=== PATIENT | female | born 1985 | race Caucasian/White ===

== ENCOUNTER 2016-05-21 19:57 | Emergency (ER) | payer OTHER ==
[2016-05-21 20:13] VITALS: TEMP 97.1
[2016-05-21] MEDS ORDERED: MORPHINE SULFATE INJ 10 MG/ML VIAL IV ONE ×2 (20:45→21:27)
[2016-05-21] MEDS ORDERED: ONDANSETRON INJ 4 MG/2 ML VIAL IV ONE (20:45)
--- NOTE | 2016-05-21 20:45 | CT ---
EXAM DESCRIPTION: Sinuses CLINICAL HISTORY: 30 years Female tooth/facial pain COMPARISON: None. TECHNIQUE: Contiguous axial images obtained through the maxillofacial region without IV contrast. Reformatted images obtained. FINDINGS: The body of the mandible and the mandibular teeth are incompletely imaged. The post septal orbits appear unremarkable. Minimal mucosal thickening in the left maxillary sinus. Minimal mucosal thickening within some ethmoid air cells. No fluid is visualized in the paranasal sinuses. Mild deviation of the nasal septum towards the right. No facial bone fractures are identified. Questionable lucency at the roots of the bilateral maxillary molar teeth. Dental films of these regions are recommended. No definite dental caries. IMPRESSION: The body of the mandible and mandibular teeth are incompletely imaged on this study. Questionable lucency at the roots of the bilateral maxillary molar teeth. Dental films of these regions are recommended. Minimal mucosal thickening in the left maxillary sinus and in some ethmoid air cells. Electronically signed by: Bryan Flood MD 05/21/2016 8:44 PM [employer]
[2016-05-21] MEDS ORDERED: SODIUM CHLORIDE 0.9% 10 ML VIAL ONE (20:48)
--- NOTE | 2016-05-21 21:06 | ED.PDOC ---
History of Present Illness - General Chief Complaint: Dental/Mouth Stated Complaint: tooth Time Seen by Provider: 05/21/16 20:44 Source: patient, RN notes reviewed, Vital Signs reviewed Exam Limitations: no limitations - History of Present Illness Initial Comments: Patient is a 30 y/o female who had a root canal on tooth #12 yesterday. Prior to going to the dentist, Patient didn't feel well, was achy. She vomited once after she ate breakfast. However she felt better afterward, so she went ahead with the procedure. After the anesthesia wore off, she has experienced severe pain, worsening today. The pain is severe, a pressure, and it feels like a screw is being twisted into her sinus cavity. The pain is throughout her left maxillary sinus and radiates to the back of her head. She has felt feverish and has had chills. She has zara taking Tylenol with codeine, her last being a 1800, however they have not touched the pain. Timing/Duration: 24 hours Severity: severe Improving Factors: nothing Worsening Factors: eating, other - touch to tooth Associated Symptoms: fever/chills, nausea/vomiting Allergies/Adverse Reactions: Allergies Penicillins Allergy (Unknown, Verified 11/03/14 04:37) Unknown Home Medications: Ambulatory Orders Amoxicillin & Pot Clavulanate [Augmentin] 875 mg PO BID #14 tab 05/21/16 Gabapentin 300 mg PO TID PRN #15 cap 05/21/16 Review of Systems - Review of Systems Constitutional: States: chills, fever EENTM: States: nose congestion, mouth pain, other - left sinus pain Respiratory: States: no symptoms reported Cardiology: States: no symptoms reported Gastrointestinal/Abdominal: States: diarrhea, nausea, vomiting Genitourinary: States: no symptoms reported Musculoskeletal: States: no symptoms reported Skin: States: no symptoms reported Neurological: States: no symptoms reported Endocrine: States: no symptoms reported Hematologic/Lymphatic: States: no symptoms reported All other Systems: Reviewed and Negative Past Medical History (General) - Patient Medical History Hx Seizures: No Hx Stroke: No Hx Dementia: No Hx Asthma: No Hx of COPD: No Hx Cardiac Disorders: Yes - mitral valve prolapse, diagnosed 2013 Hx Congestive Heart Failure: No Hx Pacemaker: No Hx Hypertension: No Hx Thyroid Disease: No Hx Diabetes: Yes - gesational DM Hx Gastroesophageal Reflux: No Hx Renal Disease: No Hx Cancer: No Hx of HIV: No Hx Hepatitis C: No Hx MRSA: No Surgical History: no surgical history - Vaccination History Hx Tetanus, Diphtheria Vaccination: Yes Hx Influenza Vaccination: No Hx Pneumococcal Vaccination: No Immunizations Up to Date: Yes - Social History Hx Tobacco Use: Yes - 1/2 ppd Hx Chewing Tobacco Use: No Hx Alcohol Use: No Hx Substance Use: No Hx Substance Use Treatment: No Hx Depression: No Hx Physical Abuse: No Hx Emotional Abuse: No Hx Suspected Abuse: No - Activities of Daily Living Hospice Agency (if applicable):: None - Female History Patient is a Female of Child Bearing Age (10 -59 yrs old): Yes Patient : Yes Expected Date of Delivery:: 06/28/15 Hx Gestational Age: 17 Family Medical History - Family History Father Family History: Unknown Hx Family;Other: does not know dad Mother Family History: No Known Name: micheal bejarano Age (years): 57 Living Status: Still Living Physical Exam - Physical Exam General Appearance: Alert, Obvious distress Eye Exam: bilateral normal Ears, Nose, Throat: hearing grossly normal, other - evidence of left upper tooth procedure. Mild erythema to surrounding gums. Tenderness to palpation of the left sinus, jaw, and maxillary sinus. Neck: non-tender, full range of motion, supple, normal inspection, other - No LAD Respiratory: lungs clear, normal breath sounds, no respiratory distress, no accessory muscle use Cardiovascular/Chest: regular rate, rhythm, no edema, no gallop, no murmur Gastrointestinal/Abdominal: normal bowel sounds, non tender, soft, no organomegaly Back Exam: normal inspection, no CVA tenderness Extremity: normal range of motion Neurologic: alert, normal mood/affect, oriented x 3 Skin Exam: normal color, warm/dry Progress - Progress Progress: 05/21/16 22:23 Patient was given a total of Morphine 4 mg, Zofran, Toradol and gabapentin. Prior to discharge, her pain was a 2/10. She will call her dentist if symptoms persist. - Results/Orders Results/Orders: 05/21/16 05/21/16 20:08 21:38 Temperature 97.1 F L Pulse Rate [ 78 72 left] Respiratory 18 18 Rate Blood Pressure 113/74 120/81 [left] O2 Sat by Pulse 96 93 L Oximetry Departure - Departure Clinical Impression: Pain, dental ICD-10 Supporting Text: s/p root canal Time of Disposition: 22:29 Disposition: Discharge to Home or Self Care Condition: Excellent Departure Forms: ED Discharge - Pt. Copy, Patient Portal Self Enrollment Instructions: DI for Dental Pain, Root Canal Treatment, DI for Root Canal Treatment Diet: resume usual diet, other - Do not chew on left side of mouth. Prescriptions: Amoxicillin & Pot Clavulanate [Augmentin] 875 mg PO BID #14 tab Gabapentin 300 mg PO TID PRN #15 cap PRN Reason: Pain Home Medications: Ambulatory Orders Amoxicillin & Pot Clavulanate [Augmentin] 875 mg PO BID #14 tab 05/21/16 Gabapentin 300 mg PO TID PRN #15 cap 05/21/16 Additional Instructions: May take Ibuprofen 800 mg Q8H. May take Tylenol 650 mg Q4H unless taking Tylenol #3 with codeine. Call dentist's office in AM to let him know of treatment and to schedule follow-up appointment.
[2016-05-21] MEDS ORDERED: KETOROLAC TROMETHAMINE INJ 30 MG/ML VIAL IV ONE (21:37)
[2016-05-21 21:39] VITALS: BP 120/81; O2SAT 93
[2016-05-21] MEDS ORDERED: GABAPENTIN 300 MG CAP PO ONE (21:49)
[2016-05-21] MEDS ORDERED: AMOXICILLIN & POT CLAVULANATE 875 MG TAB PO ONE (22:21)
== END 2016-05-21 22:53 | disposition home or self-care (01) ==
LOC: ER 19:57
DX: Z98.818 Other dental procedure status (principal); K08.89 Other specified disorders of teeth and supporting structures; I34.1 Nonrheumatic mitral (valve) prolapse; Z88.0 Allergy status to penicillin
CPT/HCPCS: 70486; 80048; 83880; 85025; 87070; 87502; 87651; J1885; J2270; J2405

== ENCOUNTER 2016-05-22 07:29 | Emergency (ER) | payer OTHER ==
--- NOTE | 2016-05-22 07:49 | ED.PDOC ---
History of Present Illness - General Chief Complaint: Dental/Mouth Stated Complaint: left maxillary sinus pain Time Seen by Provider: 05/22/16 07:42 Source: patient, RN notes reviewed Exam Limitations: no limitations - History of Present Illness Initial Comments: Ms.Tiffany Bush 30 y/o female with no chronic medical problem stated that she had root canal wednesday this week and left cheek started swelling up given antibiotics and ct sinuses done showing no abscess formation. Timing/Duration: 24 hours Severity: moderate Improving Factors: nothing Worsening Factors: eating - chewing Associated Symptoms: denies symptoms Allergies/Adverse Reactions: Allergies Penicillins Allergy (Unknown, Verified 11/03/14 04:37) Unknown Home Medications: Ambulatory Orders Amoxicillin & Pot Clavulanate [Augmentin] 875 mg PO BID #14 tab 05/21/16 Gabapentin 300 mg PO TID PRN #15 cap 05/21/16 Clindamycin HCl [Cleocin] 300 mg PO TID #30 cap 05/22/16 Exenatide [Bydureon Pen] 10 mg .ROUTE 05/22/16 Metformin HCl 500 mg PO BID 05/22/16 Naproxen [Naprosyn] 500 mg PO BID #10 tab 05/22/16 Tramadol HCl 100 mg PO TID PRN #30 tab 05/22/16 Past Medical History (General) - Patient Medical History Hx Seizures: No Hx Stroke: No Hx Dementia: No Hx Asthma: No Hx of COPD: No Hx Cardiac Disorders: Yes - mitral valve prolapse, diagnosed 2012 Hx Congestive Heart Failure: No Hx Pacemaker: No Hx Hypertension: No Hx Thyroid Disease: No Hx Diabetes: Yes - gesational DM Hx Gastroesophageal Reflux: No Hx Renal Disease: No Hx Cancer: No Hx of HIV: No Hx Hepatitis C: No Hx MRSA: No Surgical History: tonsillectomy, other - - Vaccination History Hx Tetanus, Diphtheria Vaccination: Yes Hx Influenza Vaccination: No Hx Pneumococcal Vaccination: No - Social History Hx Tobacco Use: Yes - 1/2 ppd Hx Chewing Tobacco Use: No Hx Alcohol Use: No Hx Substance Use: No Hx Substance Use Treatment: No Hx Depression: No Hx Physical Abuse: No Hx Emotional Abuse: No Hx Suspected Abuse: No - Activities of Daily Living Patient Lives Alone: No - family - Female History Patient : Yes Expected Date of Delivery:: 06/28/15 Hx Gestational Age: 17 Family Medical History - Family History Father Family History: Unknown Hx Family Hypertension: Yes - several family members Hx Family Diabetes: Yes - multiple family members Hx Family Cancer: Yes - breast ,lung -grandmother Hx Family;Other: does not know dad Mother Family History: No Known Name: micheal bejarano Age (years): 55 Living Status: Still Living Physical Exam - Physical Exam General Appearance: Alert, No apparent distress, Other - swelling left cheek area Eye Exam: bilateral normal Ears, Nose, Throat: hearing grossly normal, normal ENT inspection, normal pharynx, other - first molar with fillings slight swelling around gum Neck: non-tender, full range of motion, supple, normal inspection Respiratory: chest non-tender, lungs clear, normal breath sounds, no respiratory distress Cardiovascular/Chest: normal peripheral pulses, regular rate, rhythm, no edema, no gallop Gastrointestinal/Abdominal: normal bowel sounds, non tender, soft, no organomegaly, no pulsatile mass Back Exam: normal inspection, no CVA tenderness, no vertebral tenderness Extremity: normal range of motion, non-tender, normal inspection 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 Copy, Patient Portal Self Enrollment Instructions: DI for Dental Pain Diet: other - SOFT DIET UNTIL BETTER Prescriptions: Clindamycin HCl [Cleocin] 300 mg PO TID #30 cap Naproxen [Naprosyn] 500 mg PO BID #10 tab Tramadol HCl 100 mg PO TID PRN #30 tab PRN Reason: Pain Home Medications: Ambulatory Orders Amoxicillin & Pot Clavulanate [Augmentin] 875 mg PO BID #14 tab 05/21/16 Gabapentin 300 mg PO TID PRN #15 cap 05/21/16 Clindamycin HCl [Cleocin] 300 mg PO TID #30 cap 05/22/16 Exenatide [Bydureon Pen] 10 mg .ROUTE 05/22/16 Metformin HCl 500 mg PO BID 05/22/16 Naproxen [Naprosyn] 500 mg PO BID #10 tab 05/22/16 Tramadol HCl 100 mg PO TID PRN #30 tab 05/22/16 Additional Instructions: FOLLOW UP WITH DENTIST PATIENT TO CALL FOR APPOINTMENT.
[2016-05-22] MEDS ORDERED: CLINDAMYCIN IV 600MG 600 MG in PREMIX BAG 1 BAG IVPB ONE (08:06)
[2016-05-22] MEDS ORDERED: CLINDAMYCIN HCL CAP 150 MG CAP PO ONE (08:07)
[2016-05-22] MEDS ORDERED: HYDROcodone 10MG/APAP 325MG 1 EA TAB PO ONE (08:08)
[2016-05-22] MEDS ORDERED: KETOROLAC TROMETHAMINE INJ 30 MG/ML VIAL IV ONE (08:08)
[2016-05-22] MEDS ORDERED: CLINDAMYCIN IV 600MG 50 ML IVPB ONE (08:12)
[2016-05-22 09:25] VITALS: TEMP 96.8
[2016-05-22 10:02] VITALS: BP 105/70; O2SAT 98
== END 2016-05-22 09:55 | disposition home or self-care (01) ==
LOC: ER 07:29
DX: L03.211 Cellulitis of face (principal); K08.89 Other specified disorders of teeth and supporting structures; I34.1 Nonrheumatic mitral (valve) prolapse; F17.200 Nicotine dependence, unspecified, uncomplicated
CPT/HCPCS: J1885; J3490

== ENCOUNTER 2016-11-12 22:29 | Emergency (ER) | payer OTHER | END 2016-11-12 22:52 | disposition home or self-care (01) | LOC: ER 22:29 | DX: Z53.21 Procedure and treatment not carried out due to patient leaving prior to being seen by health care provider (principal) ==

== ENCOUNTER 2016-11-16 09:26 | Emergency (ER) | payer OTHER ==
--- NOTE | 2016-11-16 09:48 | ED.PDOC ---
History of Present Illness - General Chief Complaint: Problem Stated Complaint: Think I have a UTI Time Seen by Provider: 11/16/16 09:40 Source: patient, RN notes reviewed, Vital Signs reviewed Exam Limitations: no limitations - History of Present Illness Initial Comments: Patient comes in with c/o dysuria that started @ 05:00 this morning. Reports pain @ her urethra and lower abdominal discomfort. No fever, chills, nausea or back pain. She did have a recent miscarriage on Dec 12. She would like to get her blood levels checked. Her last Hcg was 2. Timing/Duration: this morning Quality: mild, dull, sharpness, steady Onset Location: suprapubic, urethral Radiation: none Activites at Onset: none Prior abdominal problems: similar symptoms Sexual intercourse history: single partner Improving Factors: nothing Worsening Factors: nothing Associated Symptoms: dysuria, urinary frequency Home Medications: Ambulatory Orders Metformin HCl 500 mg PO BID 05/22/16 Nitrofurantoin Monohydrate Mac [Macrobid] 100 mg PO BID #20 cap 11/16/16 Phenazopyridine HCl [Pyridium] 200 mg PO TID #6 tab 11/16/16 Review of Systems - Review of Systems Constitutional: States: no symptoms reported. Denies: chills, fever, malaise Respiratory: States: no symptoms reported Cardiology: States: no symptoms reported Gastrointestinal/Abdominal: States: see HPI, abdominal pain. Denies: constipation, diarrhea, nausea, vomiting Genitourinary: States: see HPI, dysuria, frequency, pain Musculoskeletal: States: no symptoms reported. Denies: back pain Skin: States: no symptoms reported Neurological: States: no symptoms reported All other Systems: No Change from Baseline Past Medical History (General) - Patient Medical History Hx Seizures: No Hx Stroke: No Hx Dementia: No Hx Asthma: No Hx of COPD: No Hx Cardiac Disorders: Yes - mitral valve prolapse, diagnosed 2012 Hx Congestive Heart Failure: No Hx Pacemaker: No Hx Hypertension: No Hx Thyroid Disease: No Hx Diabetes: Yes - gesational DM Hx Gastroesophageal Reflux: No Hx Renal Disease: No Hx Cancer: No Hx of HIV: No Hx Hepatitis C: No Hx MRSA: No - Vaccination History Hx Tetanus, Diphtheria Vaccination: Yes Hx Influenza Vaccination: No Hx Pneumococcal Vaccination: No - Social History Hx Tobacco Use: Yes - 1/2 ppd Hx Chewing Tobacco Use: No Hx Alcohol Use: No Hx Substance Use: No Hx Substance Use Treatment: No Hx Depression: No Hx Physical Abuse: No Hx Emotional Abuse: No Hx Suspected Abuse: No - Female History Patient : Yes Expected Date of Delivery:: 06/28/15 Hx Gestational Age: 17 Family Medical History - Family History Father Family History: Unknown Hx Family Hypertension: Yes - several family members Hx Family Diabetes: Yes - multiple family members Hx Family Cancer: Yes - breast ,lung -grandmother Hx Family;Other: does not know dad Mother Family History: No Known Name: micheal bejarano Age (years): 57 Living Status: Still Living Physical Exam - Physical Exam General Appearance: Alert, Comfortable, No apparent distress, Well Developed, Well Groomed, Well Hydrated, Well Nourished Cardiovascular/Respiratory: regular rate, rhythm, no M/R/G, normal breath sounds , no respiratory distress Gastrointestinal/Abdominal: normal bowel sounds, soft, no organomegaly, no pulsatile mass, tenderness - suprapubic w/o guarding or rebound Back Exam: no CVA tenderness Extremity: normal inspection Neurologic: alert, normal mood/affect, oriented x 3 Skin Exam: normal color, warm/dry Comments: Vital Signs 11/16/16 09:44 Temperature 97.1 F L Pulse Rate [L 88 Arm] Respiratory 18 Rate Blood Pressure 104/70 [L Arm] O2 Sat by Pulse 97 Oximetry Progress - Results/Orders Results/Orders: Laboratory Tests 11/16/16 11/16/16 09:30 09:50 Beta HCG, Quant < 0.6 Urine Color Yellow Urine Appearance Cloudy Urine pH 6.0 Ur Specific [place] 1.020 Urine Protein Negative Urine Glucose (UA) Negative Urine Ketones Negative Urine Blood Moderate H Urine Nitrite Negative Urine Bilirubin Negative Urine Urobilinogen 0.2 Ur Leukocyte Esterase Moderate H Urine RBC 20-30 H Urine WBC >50 H Ur Epithelial Cells 1-3 Urine Bacteria 2+ H Departure - Departure Clinical Impression: Urinary tract infection Qualifiers: Urinary tract infection type: acute cystitis Hematuria presence: with hematuria Qualified Code(s): N30.01 - Acute cystitis with hematuria Time of Disposition: 10:26 Disposition: Discharge to Home or Self Care Condition: Good Departure Forms: ED Discharge - Pt. Copy, Patient Portal Self Enrollment Instructions: DI for Urinary Tract Infection (UTI) Diet: resume usual diet - Increase water intake Activity: increase activity as tolerated Referrals: Donovan Triana MD [Primary Care Provider] - 1-2 Weeks Prescriptions: Nitrofurantoin Monohydrate Mac [Macrobid] 100 mg PO BID #20 cap Phenazopyridine HCl [Pyridium] 200 mg PO TID #6 tab Home Medications: Ambulatory Orders Metformin HCl 500 mg PO BID 05/22/16 Nitrofurantoin Monohydrate Mac [Macrobid] 100 mg PO BID #20 cap 11/16/16 Phenazopyridine HCl [Pyridium] 200 mg PO TID #6 tab 11/16/16
[2016-11-16 10:00] VITALS: TEMP 97.1
[2016-11-16 10:39] VITALS: BP 109/70; O2SAT 98
== END 2016-11-16 10:38 | disposition home or self-care (01) ==
LOC: ER 09:26
DX: N30.01 Acute cystitis with hematuria (principal); I34.1 Nonrheumatic mitral (valve) prolapse; Z87.891 Personal history of nicotine dependence; Z86.32 Personal history of gestational diabetes

== ENCOUNTER → 2017-01-17 | Outpatient (CLI) | payer OTHER | END | disposition home or self-care (01) | LOC: LAB.O 09:16 | PROVIDERS: ATTEND Internal Medicine | DX: O24.111 Pre-existing type 2 diabetes mellitus, in pregnancy, first trimester (principal) ==

== ENCOUNTER 2017-02-18 22:52 | Emergency (ER) | payer MEDICAID, OTHER ==
[2017-02-18 23:51] VITALS: TEMP 97.9; O2SAT 98
--- NOTE | 2017-02-18 23:53 | ED.PDOC ---
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 The patient is presenting secondary to some cramping and some mild spotting. No aguilera of fluid and no significant vaginal discharge otherwise. No fever. No trauma. The patient became with this almost immediately after a previous miscarriage. She is concerned that she may be having another miscarriage. the patient is certain that she is B+ blood type. Timing/Duration: 4-6 hours Severity: mild Improving Factors: nothing Worsening Factors: nothing Associated Symptoms: denies symptoms Allergies/Adverse Reactions: Allergies NO KNOWN ALLERGY Allergy (Verified 02/18/17 23:43) Home Medications: Ambulatory Orders Metformin HCl 500 mg PO BID 05/22/16 Nitrofurantoin Monohydrate Mac [Macrobid] 100 mg PO BID #20 cap 11/16/16 Phenazopyridine HCl [Pyridium] 200 mg PO TID #6 tab 11/16/16 Review of Systems - Review of Systems Constitutional: States: no symptoms reported EENTM: States: no symptoms reported Respiratory: States: no symptoms reported Cardiology: States: no symptoms reported Gastrointestinal/Abdominal: States: abdominal pain Genitourinary: States: discharge Musculoskeletal: States: no symptoms reported Skin: States: no symptoms reported Neurological: States: anxiety Endocrine: States: no symptoms reported All other Systems: No Change from Baseline Past Medical History (General) - Patient Medical History Hx Seizures: No Hx Stroke: No Hx Dementia: No Hx Asthma: No Hx of COPD: No Hx Cardiac Disorders: Yes - mitral valve prolapse, diagnosed 2013 Hx Congestive Heart Failure: No Hx Pacemaker: No Hx Hypertension: No Hx Thyroid Disease: No Hx Diabetes: Yes - gesational DM Hx Gastroesophageal Reflux: No Hx Renal Disease: No Hx Cancer: No Hx of HIV: No Hx Hepatitis C: No Hx MRSA: No - Vaccination History Hx Tetanus, Diphtheria Vaccination: Yes Hx Influenza Vaccination: No Hx Pneumococcal Vaccination: No - Social History Hx Tobacco Use: Yes - 1/2 ppd Hx Chewing Tobacco Use: No Hx Alcohol Use: No Hx Substance Use: No Hx Substance Use Treatment: No Hx Depression: No Hx Physical Abuse: No Hx Emotional Abuse: No Hx Suspected Abuse: No - Female History Hx Last Menstrual Period: 11/12/16 Patient : Yes Expected Date of Delivery:: 06/28/15 Hx Gestational Age: 17 Family Medical History - Family History Father Family History: Unknown Hx Family Hypertension: Yes - several family members Hx Family Diabetes: Yes - multiple family members Hx Family Cancer: Yes - breast ,lung -grandmother Hx Family;Other: does not know dad Mother Family History: No Known Name: micheal bejarano Age (years): 57 Living Status: Still Living Physical Exam - Physical Exam General Appearance: Alert, Anxious, No apparent distress Eye Exam: bilateral normal Ears, Nose, Throat: hearing grossly normal Neck: full range of motion Respiratory: no respiratory distress, no accessory muscle use Cardiovascular/Chest: normal peripheral pulses, no edema Peripheral Pulses: dorsalis pedis,right: 2+, dorsalis pedis,left: 2+ Gastrointestinal/Abdominal: non tender, soft Rectal Exam: deferred Extremity: normal range of motion, non-tender, normal inspection, no pedal edema , normal capillary refill 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 she reports a B+ blood type. Transabdominal ultrasound shows a intrauterine gestational sac that is intact. Fetus does appear to be present and a small amount of activity is seen. Cardiac motion is noted. This is a very low resolution ultrasound. Pelvic exam is deferred given the ultrasound findings as it would only likely increase uterine irritability. The patient is to avoid strenuous physical activity or intercourse. She should follow-up with her musculoskeletal physician tomorrow for a higher resolution ultrasound and a pelvic exam at that time if they deem it necessary. She is too early in to consider a cerclage. Keep well hydrated. Follow up with her musculoskeletal physician tomorrow. - Results/Orders Results/Orders: Laboratory Tests 02/19/17 00:17 Urine Color Yellow Urine Appearance Clear Urine pH 6.0 Ur Specific [place] 1.015 Urine Protein Negative Urine Glucose (UA) Negative Urine Ketones Negative Urine Blood Negative Urine Nitrite Negative Urine Bilirubin Negative Urine Urobilinogen 0.2 Ur Leukocyte Esterase Negative Urine RBC 0 Urine WBC 0-1 Ur Epithelial Cells 1-3 Urine Bacteria Rare Departure - Departure Clinical Impression: Threatened Disposition: Discharge to Home or Self Care Condition: Fair Departure Forms: ED Discharge - Pt. Copy, Patient Portal Self Enrollment Instructions: DI for Threatened Diet: regular diet Activity: other - pelvic rest Referrals: GAVIN OLIVEROS MD/OBSASHA [Primary Care Provider] - 1-2 Weeks Home Medications: Ambulatory Orders Metformin HCl 500 mg PO BID 05/22/16 Nitrofurantoin Monohydrate Mac [Macrobid] 100 mg PO BID #20 cap 11/16/16 Phenazopyridine HCl [Pyridium] 200 mg PO TID #6 tab 11/16/16 Additional Instructions: the patient is a 31-year-old female with a history of multiple miscarriages with one very recently, presenting secondary to concern over the possibility of another miscarriage at approximately 10 weeks. she reports a B+ blood type. Transabdominal ultrasound shows a intrauterine gestational sac that is intact. Fetus does appear to be present and a small amount of activity is seen. Cardiac motion is noted. This is a very low resolution ultrasound. Pelvic exam is deferred given the ultrasound findings as it would only likely increase uterine irritability. The patient is to avoid strenuous physical activity or intercourse. She should follow-up with her musculoskeletal physician tomorrow for a higher resolution ultrasound and a pelvic exam at that time if they deem it necessary. She is too early in to consider a cerclage. Keep well hydrated. Follow up with her musculoskeletal physician tomorrow.
[2017-02-19 01:02] VITALS: BP 118/73
== END 2017-02-19 01:02 | disposition home or self-care (01) ==
LOC: ER 22:52
DX: O20.0 Threatened abortion (principal); O99.411 Diseases of the circulatory system complicating pregnancy, first trimester; I34.1 Nonrheumatic mitral (valve) prolapse; O24.419 Gestational diabetes mellitus in pregnancy, unspecified control; O99.331 Smoking (tobacco) complicating pregnancy, first trimester; Z3A.10 10 weeks gestation of pregnancy

== ENCOUNTER → 2017-07-30 | Outpatient (CLI) | payer MEDICAID ==
--- NOTE | 2017-08-02 07:35 | US ---
EXAM DESCRIPTION: OB ,Late (15-40wks) CLINICAL HISTORY: Z33.1 COMPARISON: None. TECHNIQUE: Real-time sonographic images of the pelvis are obtained. FINDINGS: Single live intrauterine . Presentation is cephalic.Positive limb and cardiac activity. Four-chamber heart is present. The heart rate is 124 beats per min. The kidneys, urinary bladder, stomach, brain, and spine are normal. The extremities are visualized and unremarkable. Facial structures are not well seen. There is a three vessel cord with normal cord insertion. The placenta is located posteriorly. The ovaries are not identified because of overlying bowel gas. No adnexal abnormality is seen. The following measurements were obtained: BPD 8.5cm 34 weeks one day HC 31.4cm 35 weeks two days AC 29.6cm 33 weeks four days FL 6.4cm 32 weeks six days Estimated weight 2227 g +/- 334 g. growth by LMP 38th percentile. KELLY not calculated The composite estimated gestational age by ultrasound is 34 weeks zero days. GRADY by ultrasound September 10, 2017. GRADY by LMP September 12, 2017. IMPRESSION: Single live intrauterine in cephalic presentation with estimated gestational age of 34 weeks zero days correlating with an estimated date of delivery of September 10, 2017. Slightly limited anatomic survey without apparent developmental abnormality. Electronically signed by: Josse Hubbard MD 08/02/2017 7:33 AM CDT
== END ==
LOC: US 11:09
PROVIDERS: ATTEND General Practice
DX: Z33.1 Pregnant state, incidental (principal)

== ENCOUNTER 2017-08-20 02:26 | Emergency (ER) | payer OTHER ==
--- NOTE | 2017-08-20 02:50 | ED.PDOC ---
History of Present Illness - General Chief Complaint: Dental/Mouth Stated Complaint: toothache Time Seen by Provider: 08/20/17 02:33 Source: patient Exam Limitations: no limitations - History of Present Illness Initial Comments: Kathia Bush 32 y/o female came to er with dull left lower jaw dental pain for the last 2 weeks initially manageable but getting more constant and hurting more.had root canal in the past.Presently term pregnacy scheduled for c- section next week. Timing/Duration: other - see hpi Severity: moderate EENT Location: dental Prearrival Treatment: no prearrival treatment Presenting Symptoms: see hpi Worsening Factors: eating Associated Symptoms: denies symptoms, other - except pain lower left jaw Allergies/Adverse Reactions: Allergies NO KNOWN ALLERGY Allergy (Verified 02/18/17 23:43) Home Medications: Ambulatory Orders Metformin HCl 500 mg PO BID 05/22/16 Nitrofurantoin Monohydrate Mac [Macrobid] 100 mg PO BID #20 cap 11/16/16 Phenazopyridine HCl [Pyridium] 200 mg PO TID #6 tab 11/16/16 Acetamin W/Cod #3 Tab [Tylenol w/CODEINE #3] 1 ea PO TID PRN #3 tab 08/20/17 Clindamycin HCl 150 mg PO TID 7 Days #21 cap 08/20/17 Review of Systems - Review of Systems Constitutional: States: no symptoms reported EENTM: States: see HPI Respiratory: States: no symptoms reported Cardiology: States: no symptoms reported All other Systems: Reviewed and Negative, No Change from Baseline Past Medical History (General) - Patient Medical History Hx Seizures: No Hx Stroke: No Hx Dementia: No Hx Asthma: No Hx of COPD: No Hx Cardiac Disorders: Yes - mitral valve prolapse, diagnosed 2013 Hx Congestive Heart Failure: No Hx Pacemaker: No Hx Hypertension: No Hx Thyroid Disease: No Hx Diabetes: Yes - gest Hx Gastroesophageal Reflux: No Hx Renal Disease: No Hx Cancer: No Hx of HIV: No Hx Hepatitis C: No Hx MRSA: No Surgical History: tonsillectomy, other - - Vaccination History Hx Tetanus, Diphtheria Vaccination: Yes Hx Influenza Vaccination: No Hx Pneumococcal Vaccination: No - Social History Hx Tobacco Use: Yes - 1/2 ppd Hx Chewing Tobacco Use: No Hx Alcohol Use: No Hx Substance Use: No Hx Substance Use Treatment: No Hx Depression: No Hx Physical Abuse: No Hx Emotional Abuse: No Hx Suspected Abuse: No - Female History Patient is a Female of Child Bearing Age (10 -59 yrs old): Yes Hx Last Menstrual Period: 12/04/16 Patient : Yes Expected Date of Delivery:: 08/24/17 Hx Gestational Age: 17 Family Medical History - Family History Father Family History: Unknown Hx Family Hypertension: Yes - several family members Hx Family Diabetes: Yes - multiple family members Hx Family Cancer: Yes - breast ,lung -grandmother Hx Family;Other: does not know dad Mother Family History: No Known Name: micheal bejarano Age (years): 55 Living Status: Still Living Physical Exam - Physical Exam General Appearance: Alert, No apparent distress, Other - in pain Eye Exam: bilateral normal Nasal Exam: normal inspection Throat Exam: normal mouth inspection, dental tenderness - left lower jaw Neck: non-tender, supple Cardiovascular/Respiratory: regular rate, rhythm, no M/R/G, normal peripheral pulses, normal breath sounds Abdominal Exam: non-tender, other - gravid uterus Neurologic: alert, oriented x 3 Progress - Progress Progress: 08/20/17 02:54 Vital Signs - 8 hr 08/20/17 02:35 Temperature 96.5 F L Pulse Rate [ 108 H left] Respiratory 20 Rate Blood Pressure 141/83 [left] O2 Sat by Pulse 95 Oximetry - Results/Orders Results/Orders: right infraalveolar oral nerve block done left with Lidocaine 1% with epinephrine 2 cc given aspiration done tolerated procedure well. Departure - Departure Clinical Impression: Pain, dental Time of Disposition: 03:30 Disposition: Discharge to Home or Self Care Condition: Fair Departure Forms: ED Discharge - Pt. Copy, Patient Portal Self Enrollment Instructions: DI for Dental Pain Diet: other - SOFT DIET UNTIL BETTER Referrals: Gregorio Maza MD [Primary Care Provider] - 1-2 Weeks Prescriptions: Acetamin W/Cod #3 Tab [Tylenol w/CODEINE #3] 1 ea PO TID PRN #3 tab PRN Reason: Pain Clindamycin HCl 150 mg PO TID 7 Days #21 cap Home Medications: Ambulatory Orders Metformin HCl 500 mg PO BID 05/22/16 Nitrofurantoin Monohydrate Mac [Macrobid] 100 mg PO BID #20 cap 11/16/16 Phenazopyridine HCl [Pyridium] 200 mg PO TID #6 tab 11/16/16 Acetamin W/Cod #3 Tab [Tylenol w/CODEINE #3] 1 ea PO TID PRN #3 tab 08/20/17 Clindamycin HCl 150 mg PO TID 7 Days #21 cap 08/20/17 Additional Instructions: FOLLOW UP WITH DENTIST [facility] [place], [place] [id number] phone #[phone]
[2017-08-20 02:52] VITALS: BP 141/83
[2017-08-20] MEDS ORDERED: CLINDAMYCIN HCL CAP 150 MG CAP PO ONE (03:14)
[2017-08-20] MEDS ORDERED: LIDOCAINE 1% 10 ML VIAL INJ ONE (03:16)
[2017-08-20] MEDS ORDERED: HYDROCOD/APAP 5/325 (ER DISP) #3 TAB PO ONE (03:31)
[2017-08-20 03:56] VITALS: TEMP 97.8; O2SAT 97
== END 2017-08-20 03:50 | disposition home or self-care (01) ==
LOC: ER 02:26
DX: O99.613 Diseases of the digestive system complicating pregnancy, third trimester (principal); K08.9 Disorder of teeth and supporting structures, unspecified; O99.413 Diseases of the circulatory system complicating pregnancy, third trimester; Z3A.00 Weeks of gestation of pregnancy not specified